=== PATIENT | male | born 1985 | race Native Hawaiian/Other Pacific Islander ===

== ENCOUNTER 2017-09-24 00:51 | Emergency (ER) | payer OTHER | END 2017-09-24 04:35 | disposition home or self-care (01) | LOC: M ED 00:51 | DX: M79.642 Pain in left hand (principal); W50.0XXA Accidental hit or strike by another person, initial encounter; Y92.099 Unspecified place in other non-institutional residence as the place of occurrence of the external cause; Y93.61 Activity, american tackle football; Y99.9 Unspecified external cause status | CPT/HCPCS: 73130 ==